=== PATIENT | male | born 1980 | race Caucasian/White ===

== ENCOUNTER 2020-01-29 09:36 | Emergency (ER) | payer OTHER ==
[2020-01-29] MEDS ORDERED: AZITHROMYCIN 500 MG TAB PO STA (10:00)
[2020-01-29] MEDS ORDERED: cefTRIAXone 250 MG VIAL IM STA (10:00)
--- NOTE | 2020-01-29 10:10 | ED ---
General Adult HPI - General Chief complaint: Recheck/Abnormal Lab/Rx Stated complaint: Tooth infection Time Seen by Provider: 01/29/20 09:47 Source: patient, RN notes reviewed Mode of arrival: ambulatory Limitations: no limitations - History of Present Illness Initial comments: 39-year-old male presents to the emergency department for multiple complaints. Patient reports that he has a dental infection on the left lower tooth. States that the tooth is fractured and he gets these from time to time. States he is supposed to follow-up with his dentist but has not yet done so. Patient also complaining of yellow drainage from his penis. States it started a couple days ago. States it estrada when he urinates. Patient states that he wants to start antibiotics if she does not get a "blood infection." Patient denies any fevers or constitutional symptoms at this time.Patient has no other complaints at this time including shortness of breath, chest pain, abdominal pain, nausea or vomiting, headache, or visual changes. - Related Data Previous Rx's Medication Instructions Recorded Amoxicillin/Potassium Clav 1 tab PO Q12HR #20 tab 01/29/20 [Augmentin 875-125 Tablet] Allergies Allergy/AdvReac Type Severity Reaction Status Date / Time No Known Allergies Allergy Verified 01/29/20 10:03 Review of Systems ROS Statement: Those systems with pertinent positive or pertinent negative responses have been documented in the HPI. ROS Other: All systems not noted in ROS Statement are negative. Past Medical History Past Medical History: COPD History of Any Multi-Drug Resistant Organisms: None Reported Past Surgical History: No Surgical Hx Reported Past Psychological History: Anxiety, Bipolar, Depression, Schizoaffective Disorder Smoking Status: Current every day smoker Past Alcohol Use History: Occasional Past Drug Use History: Marijuana General Exam Limitations: no limitations General appearance: alert, in no apparent distress Head exam: Present: atraumatic, normocephalic, normal inspection Eye exam: Present: normal appearance, PERRL, EOMI. Absent: scleral icterus, conjunctival injection, periorbital swelling ENT exam: Present: normal exam, mucous membranes moist, TM's normal bilaterally, normal external ear exam. Absent: normal oropharynx (cracked L lower premolar, without abscess evidence) Neck exam: Present: normal inspection, full ROM. Absent: tenderness, meningismus, lymphadenopathy Respiratory exam: Present: normal lung sounds bilaterally. Absent: respiratory distress, wheezes, rales, rhonchi, stridor Cardiovascular Exam: Present: regular rate, normal rhythm, normal heart sounds. Absent: systolic murmur, diastolic murmur, rubs, gallop, clicks GI/Abdominal exam: Present: soft, normal bowel sounds. Absent: distended, tenderness, guarding, rebound, rigid exam: Present: urethral discharge, other (Krupa Knight RN present for exam.). Absent: normal inspection, testicular tenderness, scrotal swelling, vertical testicular lie, circumcision Course Vital Signs 01/29/20 09:37 Temperature 98.7 F Pulse Rate 88 Respiratory 18 Rate Blood Pressure 146/81 O2 Sat by Pulse 99 Oximetry Medical Decision Making - Medical Decision Making Vitals are stable. Patient did have some penile discharge on exam. He was treated with Rocephin and azithromycin to cover for gonorrhea and Chlamydia empirically. He does have 80 white blood cells in his urine and is therefore treated for UTI with Augmentin as this will also cover dental infection. He will not engage in intercourse until he has his results. - Lab Data Lab Results 01/29/20 Range/Units 10:00 Urine Color Yellow Urine Appearance Clear (Clear) Urine pH 7.0 (5.0-8.0) Ur Specific [place] 1.014 (1.001-1.035) Urine Protein Negative (Negative) Urine Glucose (UA) Negative (Negative) Urine Ketones Negative (Negative) Urine Blood Negative (Negative) Urine Nitrite Negative (Negative) Urine Bilirubin Negative (Negative) Urine Urobilinogen <2.0 (<2.0) mg/dL Ur Leukocyte Esterase Large H (Negative) Urine RBC 4 (0-5) /hpf Urine WBC 80 H (0-5) /hpf Urine Bacteria Occasional H (None) /hpf Urine Mucus Rare H (None) /hpf Disposition Clinical Impression: Dysuria, Pain, dental Disposition: HOME SELF-CARE Condition: Good Instructions (If sedation given, give patient instructions): Safe Sex (ED), Urinary Tract Infection in Men (ED) Additional Instructions: Please take antibiotic as directed. Please follow up on culture results. Do not have sexual intercourse until you have results. If you have any worsening symptoms return to the emergency room. Prescriptions: Amoxicillin/Potassium Clav [Augmentin 875-125 Tablet] 1 tab PO Q12HR #20 tab Is patient prescribed a controlled substance at d/c from ED?: No Referrals: Jarod Hoffman MD [REFERRING] - 1-2 days Time of Disposition: 10:59
[2020-01-29 10:24] LABS: Appearance,Urine Clear (Clear); Bacteria,Urine Occasional /hpf; Bilirubin,Urine Negative (Negative); Blood,Urine Negative (Negative); Color,Urine Yellow; Glucose,Urine (UA) Negative (Negative); Ketones,Urine Negative (Negative); Leukocyte Esterase,Urine Large (Negative); Mucus,Urine Rare /hpf; Nitrite,Urine Negative (Negative); Protein,Urine Negative (Negative); RBC,Urine 4 /hpf (0-5); Specific Gravity,Urine 1.014 (1.001-1.035); Urobilinogen,Urine <2.0 mg/dL (<2.0); WBC,Urine 80 /hpf (0-5)
[2020-01-29 11:28] VITALS: BP 136/79; PULSE 89; RESP 16; TEMP 97.8
[2020-01-30 11:58] LABS: C. trachomatis,PCR Positive (Neg,Equiv); Chlamydia trachomatis Source Urine; N. gonorrhoeae,PCR Positive (Neg,Equiv); Neisseria Source Urine
== END 2020-01-29 11:27 | disposition home or self-care (01) ==
LOC: EC 09:36
DX: K08.89 Other specified disorders of teeth and supporting structures (principal); R30.0 Dysuria; F17.200 Nicotine dependence, unspecified, uncomplicated
CPT/HCPCS: 81001; 87491; 87591; 87086; 99283; 96372; J0696; 87661